=== PATIENT | male | born 1990 | race Caucasian/White ===

== ENCOUNTER 2018-11-05 18:38 | Emergency (ER) | payer OTHER ==
[~2018-11-05] VITALS: Ht 182.9 cm; Wt 85.0 kg
[2018-11-05 18:44] VITALS: BP 145/78
== END 2018-11-05 19:41 | disposition home or self-care (01) ==
LOC: ED 19:25
DX: S91.331A Puncture wound without foreign body, right foot, initial encounter (principal); W22.8XXA Striking against or struck by other objects, initial encounter; Y93.89 Activity, other specified; Y92.830 Public park as the place of occurrence of the external cause; Y99.8 Other external cause status
CPT/HCPCS: 90471; 90715

== ENCOUNTER → 2019-12-21 | Outpatient (CLI) | payer BC ==
[~2019-12-21] MED LIST: NONE PER PT
== END | disposition home or self-care (01) ==
LOC: STAR 08:11
PROVIDERS: ATTEND Anesthesiology
DX: Z20.828 Contact with and (suspected) exposure to other viral communicable diseases (principal)
CPT/HCPCS: 36415; 87635

== ENCOUNTER 2019-12-26 05:42 | Day surgery (SDC) | payer BC ==
[~2019-12-26] VITALS: Ht 195.6 cm; Wt 89.0 kg
[2019-12-26 06:21] VITALS: BP 124/79
[2019-12-26] MEDS ORDERED: LACTATED RINGERS 1,000 ML IV SCH (06:28)
[2019-12-26] MEDS ORDERED: CHLORHEXIDINE 15 ML UDC ONE (06:32)
[2019-12-26] MEDS ORDERED: NONE PER PT (06:54)
[2019-12-26] MEDS ORDERED: CHLORHEXIDINE 15 ML UDC MM ONE (07:00)
[2019-12-26] MEDS ORDERED: OXYMETAZOLINE NASAL SPRAY 0.05%, 15ML ONE (07:02)
[2019-12-26] MEDS ORDERED: LIDOCAINE 1%-EPI 1:100K, 20ML ONE (07:02)
[2019-12-26] MEDS ORDERED: BACITRACIN OINT 500U/GM, 15 GM ONE (07:02)
[2019-12-26] MEDS ORDERED: FENTANYL PF 100 MCG/2ML ONE (07:03)
[2019-12-26] MEDS ORDERED: LIDOCAINE-MPF 2% ,5ML ONE (07:04)
[2019-12-26] MEDS ORDERED: SUCCINYLCHOLINE 20 MG/ML, 10ML ONE (07:04)
[2019-12-26] MEDS ORDERED: PROPOFOL 10 MG/ML, 20ML ONE (07:04)
[2019-12-26] MEDS ORDERED: MIDAZOLAM 1 MG/ML, 2ML ONE (07:04)
[2019-12-26] MEDS ORDERED: KETOROLAC 30 MG/1 ML ONE (07:15)
[2019-12-26] MEDS ORDERED: DEXAMETHASONE 4 MG/ML, 1ML ONE ×3 (07:16)
[2019-12-26] MEDS ORDERED: ONDANSETRON 2MG/ML, 2ML ONE (07:16)
[2019-12-26] MEDS ORDERED: FENTANYL PF 100 MCG/2ML IV PRN (07:30)
[2019-12-26] MEDS ORDERED: ONDANSETRON 2MG/ML, 2ML IVPush PRN (07:30)
[2019-12-26] MEDS ORDERED: OXYcodone 5 MG/5 ML ORAL.SOL UDC PO PRN (07:30)
[2019-12-26] MEDS ORDERED: CEFAZOLIN 1,000 MG ONE ×2 (07:31)
[2019-12-26] MEDS ORDERED: LABETALOL 5MG/ML, 20ML ONE (08:56)
[2019-12-26] MEDS: LABETALOL 5MG/ML, 20ML IV PRN ×3 (08:57→09:14)
[2019-12-26] MEDS ORDERED: hydrALAzine 20 MG/ML, 1ML IV PRN (09:00)
== END 2019-12-26 10:55 | disposition home or self-care (01) ==
LOC: OUT 05:42
PROVIDERS: ATTEND Otolaryngology
DX: J34.2 Deviated nasal septum (principal); J34.3 Hypertrophy of nasal turbinates
CPT/HCPCS: 30140; 30520; 88304; 88311; J0330; J0690; J1100; J1885; J2250; J2405; J2704; J3010; J3490; J7120

== ENCOUNTER 2020-10-26 18:30 | Emergency (ER) | payer BC ==
[~2020-10-26] VITALS: Ht 185.4 cm; Wt 95.0 kg
[2020-10-26 18:57] VITALS: BP 136/54
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
[2020-10-26] MEDS ORDERED: LIDOCAINE-MPF 1%, 5ML ONE (19:32)
[2020-10-26] MEDS ORDERED: LIDOCAINE-MPF 1%, 5ML INFIL ONE (20:00)
[2020-10-26] MEDS ORDERED: NEOSPORIN OINT. PKT 1 PACKET ONE (20:34)
[2020-10-26] MEDS ORDERED: HYDROcodone/APAP 5/325 TABLET ONE (20:52)
[2020-10-26] MEDS ORDERED: HYDROcodone/APAP 5/325 TABLET PO ONE (21:00)
== END 2020-10-26 21:02 | disposition home or self-care (01) ==
LOC: ED 19:45
DX: S91.311A Laceration without foreign body, right foot, initial encounter (principal); S91.331A Puncture wound without foreign body, right foot, initial encounter; X58.XXXA Exposure to other specified factors, initial encounter; Y93.39 Activity, other involving climbing, rappelling and jumping off; Y92.89 Other specified places as the place of occurrence of the external cause; Y99.8 Other external cause status
CPT/HCPCS: 12041; 99284